=== PATIENT | male | born 1940 | race Two or more races ===

== ENCOUNTER 2020-09-23 17:25 | Inpatient (IN) | payer BC, OTHER ==
[~2020-09-23] VITALS: Ht 175.3 cm; Wt 79.2 kg
[~2020-09-23 17:25] MED LIST: ACE650RS
[2020-09-23] MEDS ORDERED: hydrALAZINE HCL 20 MG/ML VL IV ONE (17:45)
[2020-09-23] MEDS: DOPamine 1600MCG/ML D5W 250 ML IV SCH (17:56)
[2020-09-23] MEDS ORDERED: CALCIUM GLUC 4.65meq/50ml D5AE 50 ML IV ONE (18:00)
[2020-09-23 18:02] LABS: Urine WBC None Seen /hpf (0 - 3)
[2020-09-23 18:18] LABS: Basophils # (auto) 0 10 ^3/uL (0-0.2); Basophils % (auto) 0.3 % (0.0-2.0); Eosinophils # (auto) 0 10 ^3/uL (0-0.8); Eosinophils % (auto) 0.4 % (0.0-7.0); Hematocrit 36.8 % (41.0-53.0); Hemoglobin 12.5 g/dL (13.5-17.5); Lymphocytes # (auto) 1.2 10 ^3/uL (0.4-5.4); Lymphocytes % (auto) 16.3 % (10.0-50.0); Mean Corpuscular Hemoglobin 30.4 pg (28.0-32.0); Mean Corpuscular Hgb Conc. 33.9 g/dL (32.0-36.0); Mean Corpuscular Volume 89.9 fL (80.0-100.0); Monocytes # (auto) 0.5 10 ^3/uL (0-1.3); Monocytes % (auto) 7.4 % (0.0-12.0); Neutrophils # (auto) 5.5 10 ^3/uL (1.6-8.6); Neutrophils % (auto) 75.6 % (37.0-80.0); Platelet Count (auto) 205 10^3/uL (140-450); White Blood Cell 7.3 10^3/uL (4.4-10.8)
[2020-09-23 18:19] LABS: Urine Bacteria NONE SEEN /hpf (None Seen); Urine Blood Negative /uL (Negative); Urine Specific Gravity 1.005 (1.001-1.035)
[2020-09-23 18:36] LABS: Albumin 3.7 g/dL (3.4-5.0); Calcium 8.4 mg/dL (8.5-10.1); Magnesium 2.2 mg/dL (1.6-2.6); Potassium 3.7 mmol/L (3.5-5.1)
[2020-09-23 18:42] LABS: BUN/Creatinine Ratio 17.6; Bilirubin, Total 0.6 mg/dL (0.2-1.0); Total Protein 7.2 g/dL (6.4-8.2)
[2020-09-23] MEDS ORDERED: NITROGLYCERIN 0.4 MG SL TAB SL PRN (22:45)
[2020-09-23] MEDS ORDERED: ACETAMINOPHEN 325 MG TAB PO PRN (22:45)
[2020-09-23] MEDS ORDERED: DOCUSATE SOD 100 MG CAP PO PRN (22:45)
[2020-09-23] MEDS ORDERED: hydrALAZINE HCL 20 MG/ML VL IV PRN (22:45)
[2020-09-23] MEDS ORDERED: MORPHINE SULF INJ 2 MG/ML SYRINGE 1ML IV PRN (22:45)
[2020-09-23] MEDS ORDERED: HYDROcodone-ACET 5/325MG TAB PO PRN (22:45)
[2020-09-24] VITALS (54 sets, daily range): BP systolic 98–172; BP diastolic 48–120
[2020-09-24] MEDS: ONDANSETRON HCL 4 MG/2 ML VIAL IV PRN ×2 (01:45→06:43)
[2020-09-24 05:00] LABS: Basophils # (auto) 0 10 ^3/uL (0-0.2); Basophils % (auto) 0.2 % (0.0-2.0); Eosinophils # (auto) 0 10 ^3/uL (0-0.8); Eosinophils % (auto) 0.1 % (0.0-7.0); Hematocrit 41.4 % (41.0-53.0); Lymphocytes # (auto) 0.8 10 ^3/uL (0.4-5.4); Lymphocytes % (auto) 5.1 % (10.0-50.0); Mean Corpuscular Hemoglobin 30.3 pg (28.0-32.0); Mean Corpuscular Hgb Conc. 33.8 g/dL (32.0-36.0); Mean Corpuscular Volume 89.7 fL (80.0-100.0); Monocytes # (auto) 1.4 10 ^3/uL (0-1.3); Monocytes % (auto) 8.1 % (0.0-12.0); Neutrophils # (auto) 14.4 10 ^3/uL (1.6-8.6); Neutrophils % (auto) 86.5 % (37.0-80.0); Nucleated Red Blood Cells % 0.5 %; Platelet Count (auto) 227 10^3/uL (140-450); Red Blood Cells 4.62 10^6/uL (4.5-5.90); Red Cell Distribution Width 15.1 % (11.8-14.3); White Blood Cell 16.6 10^3/uL (4.4-10.8)
[2020-09-24 05:15] LABS: Albumin 3.9 g/dL (3.4-5.0); Potassium 3.8 mmol/L (3.5-5.1)
[2020-09-24 05:20] LABS: BUN/Creatinine Ratio 19.7; Total Protein 7.9 g/dL (6.4-8.2)
[2020-09-24] MEDS: ZINC SULFATE 220mg CAP or TAB PO SCH (10:00)
[2020-09-24] MEDS: MULTIPLE VITAMIN TAB PO SCH (10:00)
[2020-09-24] MEDS: ASCORBIC ACID 500 MG TAB PO SCH ×2 (10:00→22:00)
[2020-09-24] MEDS: ENOXAPARIN SOD 40 MG/0.4 ML SYRINGE SC SCH (10:00)
[2020-09-24] MEDS: DOPamine 1600MCG/ML D5W 250 ML IV SCH ×2 (10:39→22:00)
[2020-09-24] MEDS: FAMOTIDINE (10MG/ML) 2ML VL IV SCH (10:40)
[2020-09-24] MEDS ORDERED: cefTRIAXone 1GM/50ML D5W 50 ML IV ONE (10:45)
[2020-09-24] MEDS ORDERED: PROCHLORPERAZINE EDISYLATE 5 MG/ML 2ML VIAL IV PRN (11:30)
[2020-09-24] MEDS ORDERED: VANCOMYCIN 1GM/250ML 250 ML IV ONE (15:08)
[2020-09-24] MEDS ORDERED: fentaNYL CITRATE 100 MCG/2 ML VL ONE (15:09)
[2020-09-24] MEDS ORDERED: VANCOMYCIN HCL 1000 MG VL ONE (15:09)
[2020-09-24] MEDS ORDERED: MIDAZOLAM HCL 1MG/1ML-2 ML VIAL ONE (15:09)
[2020-09-24] MEDS ORDERED: LIDOCAINE 2%HCL (LOCAL ANESTH.) INJ 20ML MDV ONE ×2 (15:11)
[2020-09-24] MEDS ORDERED: IODIXANOL 320MG/ML 100ML BTL IV ONE (15:21)
[2020-09-24] MEDS ORDERED: FUROSEMIDE 20 MG/2 ML VIAL ONE (15:45)
[2020-09-25] VITALS (47 sets, daily range): BP systolic 81–136; BP diastolic 49–79
[2020-09-25 04:19] LABS: Basophils # (auto) 0 10 ^3/uL (0-0.2); Basophils % (auto) 0.2 % (0.0-2.0); Eosinophils # (auto) 0 10 ^3/uL (0-0.8); Eosinophils % (auto) 0.3 % (0.0-7.0); Hematocrit 36.3 % (41.0-53.0); Hemoglobin 12.7 g/dL (13.5-17.5); Lymphocytes # (auto) 0.8 10 ^3/uL (0.4-5.4); Lymphocytes % (auto) 7.6 % (10.0-50.0); Mean Corpuscular Hemoglobin 31.1 pg (28.0-32.0); Mean Corpuscular Volume 88.6 fL (80.0-100.0); Monocytes # (auto) 0.8 10 ^3/uL (0-1.3); Monocytes % (auto) 7.7 % (0.0-12.0); Neutrophils # (auto) 8.4 10 ^3/uL (1.6-8.6); Neutrophils % (auto) 84.2 % (37.0-80.0); Platelet Count (auto) 173 10^3/uL (140-450); Red Cell Distribution Width 15.2 % (11.8-14.3)
[2020-09-25 04:32] LABS: Albumin 3.4 g/dL (3.4-5.0); Calcium 7.9 mg/dL (8.5-10.1); Potassium 3.6 mmol/L (3.5-5.1)
[2020-09-25 04:35] LABS: BUN/Creatinine Ratio 20.8; Bilirubin, Total 1.1 mg/dL (0.2-1.0); Total Protein 6.9 g/dL (6.4-8.2)
[2020-09-25] MEDS: cefTRIAXone 1GM/50ML D5W 50 ML IV SCH (08:58)
[2020-09-25] MEDS: ASCORBIC ACID 500 MG TAB PO SCH ×2 (10:00→23:16)
[2020-09-25] MEDS: ZINC SULFATE 220mg CAP or TAB PO SCH (10:00)
[2020-09-25] MEDS: MULTIPLE VITAMIN TAB PO SCH (10:00)
[2020-09-25] MEDS ORDERED: SODIUM CHLORIDE 0.9% 1,000 ML IV ONE (10:30)
[2020-09-25] MEDS: ENOXAPARIN SOD 40 MG/0.4 ML SYRINGE SC SCH (10:46)
[2020-09-25] MEDS: FAMOTIDINE (10MG/ML) 2ML VL IV SCH (10:46)
[2020-09-26 05:04] VITALS: BP 108/70
[2020-09-26 09:00] VITALS: BP 148/81
[2020-09-26] MEDS: cefTRIAXone 1GM/50ML D5W 50 ML IV SCH (10:02)
[2020-09-26] MEDS: FAMOTIDINE (10MG/ML) 2ML VL IV SCH (10:03)
[2020-09-26] MEDS: ASCORBIC ACID 500 MG TAB PO SCH (10:03)
[2020-09-26] MEDS: ZINC SULFATE 220mg CAP or TAB PO SCH (10:03)
[2020-09-26] MEDS: ENOXAPARIN SOD 40 MG/0.4 ML SYRINGE SC SCH (10:03)
[2020-09-26] MEDS: MULTIPLE VITAMIN TAB PO SCH (10:03)
[2020-09-26 10:41] LABS: Basophils # (auto) 0 10 ^3/uL (0-0.2); Basophils % (auto) 0.3 % (0.0-2.0); Eosinophils # (auto) 0.1 10 ^3/uL (0-0.8); Eosinophils % (auto) 1.1 % (0.0-7.0); Hematocrit 36.1 % (41.0-53.0); Hemoglobin 12.1 g/dL (13.5-17.5); Lymphocytes # (auto) 0.9 10 ^3/uL (0.4-5.4); Mean Corpuscular Hemoglobin 30.4 pg (28.0-32.0); Mean Corpuscular Hgb Conc. 33.6 g/dL (32.0-36.0); Mean Corpuscular Volume 90.4 fL (80.0-100.0); Monocytes # (auto) 0.7 10 ^3/uL (0-1.3); Monocytes % (auto) 8.6 % (0.0-12.0); Neutrophils # (auto) 6.1 10 ^3/uL (1.6-8.6); Nucleated Red Blood Cells % 0.1 %; Platelet Count (auto) 167 10^3/uL (140-450); Red Blood Cells 3.99 10^6/uL (4.5-5.90); Red Cell Distribution Width 14.8 % (11.8-14.3); White Blood Cell 7.8 10^3/uL (4.4-10.8)
[2020-09-26 10:52] LABS: Potassium 3.4 mmol/L (3.5-5.1)
[2020-09-26 11:00] LABS: Albumin 3.1 g/dL (3.4-5.0); BUN/Creatinine Ratio 20.9; Bilirubin, Total 0.7 mg/dL (0.2-1.0); Total Protein 6.4 g/dL (6.4-8.2)
[2020-09-26 13:00] VITALS: BP 149/87
[2020-09-26] MEDS ORDERED: cloNIDine HCL 0.1 MG TAB PO PRN (15:15)
[2020-09-26] MEDS ORDERED: POTASSIUM EFFERVESENT TAB 25 MEQ PO ONE (15:15)
[2020-09-26 16:54] VITALS: BP 155/91
== END 2020-09-26 17:30 | disposition home or self-care (01) | DRG 244 ==
LOC: ER 17:25 → TELE 22:39 → ICU WEST 23:29 → TELE-CENTR 09-25 20:50
PROVIDERS: ADMIT Nurse Practitioner Family; ATTEND Internal Medicine
PROC: 0JH606Z Insertion of Pacemaker, Dual Chamber into Chest Subcutaneous Tissue and Fascia, Open Approach (ICD-10-PCS; principal; 2020-09-24)
PROC: 02H63JZ Insertion of Pacemaker Lead into Right Atrium, Percutaneous Approach (ICD-10-PCS; 2020-09-24)
PROC: 02HK3JZ Insertion of Pacemaker Lead into Right Ventricle, Percutaneous Approach (ICD-10-PCS; 2020-09-24)
PROC: B5171ZZ Fluoroscopy of Left Subclavian Vein using Low Osmolar Contrast (ICD-10-PCS; 2020-09-24)
DX: I44.1 Atrioventricular block, second degree (principal); I10 Essential (primary) hypertension; Z20.822 Contact with and (suspected) exposure to COVID-19; C61 Malignant neoplasm of prostate; E87.6 Hypokalemia; Z95.0 Presence of cardiac pacemaker; D63.8 Anemia in other chronic diseases classified elsewhere; E83.51 Hypocalcemia; Z91.19 Patient's noncompliance with other medical treatment and regimen; D72.829 Elevated white blood cell count, unspecified; I95.9 Hypotension, unspecified
CPT/HCPCS: 33208; 36415; 70450; 71045; 75860; 80053; 81001; 83036; 83735; 84154; 84443; 84484; 85025; 85610; 87040; 87081; 87426; 93005; 93306; 96365; 96375; 99152; 99153; 99291; C1785; G0378; J0610; J0696; J2250; J2405; J3490; Q9967

== ENCOUNTER → 2020-10-19 | Outpatient (CLI) | payer OTHER ==
[~2020-10-19] VITALS: Ht 175.3 cm; Wt 82.6 kg
[~2020-10-19] MED LIST changes: +ADENOSINE 69 MG in GIVE UN-DILUTED 0 ML IV ONE; +ADENOSINE 90 MG/30 ML INJ IV ONE
== END | disposition home or self-care (01) ==
LOC: Rad HDHVI 13:09
PROVIDERS: ATTEND Internal Medicine Cardiovascular Disease
DX: I10 Essential (primary) hypertension (principal); E11.9 Type 2 diabetes mellitus without complications; R55 Syncope and collapse; R44.1 Visual hallucinations; R00.1 Bradycardia, unspecified; Z82.49 Family history of ischemic heart disease and other diseases of the circulatory system; Z95.0 Presence of cardiac pacemaker
CPT/HCPCS: 78452; 93005; 96374; 96375; A9500; J0153

== ENCOUNTER 2022-07-15 00:19 | Inpatient (IN) | payer OTHER ==
[~2022-07-15] VITALS: Ht 175.3 cm; Wt 61.7 kg
[2022-07-15] VITALS (9 sets, daily range): BP systolic 110–150; BP diastolic 51–68
[~2022-07-15 00:19] MED LIST changes: -ADENOSINE 69 MG in GIVE UN-DILUTED 0 ML IV ONE; -ADENOSINE 90 MG/30 ML INJ IV ONE
[2022-07-15 01:12] LABS: White Blood Cell 7.3 10^3/uL (4.4-10.8)
[2022-07-15 01:14] LABS: Hematocrit 19.5 % (41.0-53.0); Mean Corpuscular Hemoglobin 25.5 pg (28.0-32.0); Mean Corpuscular Hgb Conc. 29.6 g/dL (32.0-36.0); Mean Corpuscular Volume 86.3 fL (80.0-100.0); Red Blood Cells 2.26 10^6/uL (4.5-5.90)
[2022-07-15 01:23] LABS: Red Cell Distribution Width 24.5 % (11.8-14.3)
[2022-07-15 01:30] LABS: Albumin 2.7 g/dL (3.4-5.0); BUN/Creatinine Ratio 35.4; Calcium 8.2 mg/dL (8.5-10.1); Magnesium 2.6 mg/dL (1.6-2.6); Potassium 3.9 mmol/L (3.5-5.1)
[2022-07-15 01:33] LABS: Bilirubin, Total 0.5 mg/dL (0.2-1.0); Total Protein 6.2 g/dL (6.4-8.2)
[2022-07-15 01:39] LABS: Hemoglobin 5.8 g/dL (13.5-17.5)
[2022-07-15 01:40] LABS: INR 1.18 (0.9-1.15); Partial Thromboplastin Time 27.1 sec (24.6-33.4)
[2022-07-15 01:41] LABS: Basophils % (manual) 0 (0.0-2.0); Blast Cells 0; Eosinophils % (manual) 0 (0-7); Metamyelocytes % 0; Promyelocytes % 0; Reactive Lymphocytes 0
[2022-07-15 02:12] LABS: Band Neutrophils % (manual) 2; Lymphocytes % (manual) 14 (10.0-50.0); Monocytes % (manual) 9 (0-12); Myelocytes % 1
[2022-07-15] MEDS ORDERED: DEXTROSE (50%) 50ML SYRG IV PRN (05:45)
[2022-07-15] MEDS ORDERED: ACETAMINOPHEN 325 MG TAB PO PRN (05:45)
[2022-07-15] MEDS ORDERED: IPRATROPIUM BROM 0.5 MG/2.5ML INH SOL NEB PRN (05:45)
[2022-07-15] MEDS ORDERED: DOCUSATE SOD 100 MG CAP PO PRN (05:45)
[2022-07-15] MEDS ORDERED: MORPHINE SULFATE INJ 2 MG/ml SYRG IV PRN (05:45)
[2022-07-15] MEDS ORDERED: NITROGLYCERIN 0.4 MG SL TAB SL PRN (05:45)
[2022-07-15] MEDS ORDERED: ALBUTEROL SULF 2.5 MG/0.5ML(0.5%) NEB SOLN NEB PRN (05:45)
[2022-07-15] MEDS ORDERED: ALBUMIN 25% 100 ML IV ONE (05:45)
[2022-07-15] MEDS ORDERED: ONDANSETRON HCL 4 MG/2 ML VIAL IV PRN (05:45)
[2022-07-15] MEDS: SODIUM CHLOR 0.9% PF (SALINE LOCK) 10ML VIAL/SYR IV SCH ×3 (06:01→22:43)
[2022-07-15] MEDS: InsuLIN REG 1unit/0.01ml Soln (100units/ml) SC SCH ×4 (07:00→22:56)
[2022-07-15 07:01] LABS: Hematocrit 17.5 % (41.0-53.0); Mean Corpuscular Hemoglobin 25.9 pg (28.0-32.0); Mean Corpuscular Hgb Conc. 31.2 g/dL (32.0-36.0); Red Blood Cells 2.11 10^6/uL (4.5-5.90); White Blood Cell 6.6 10^3/uL (4.4-10.8)
[2022-07-15] MEDS: ACCU-CHEK COMFORT CURVE STRIP VI SCH ×4 (07:05→22:46)
[2022-07-15 07:13] LABS: Red Cell Distribution Width 24.5 % (11.8-14.3)
[2022-07-15 07:17] LABS: Hemoglobin 5.5 g/dL (13.5-17.5)
[2022-07-15 07:18] LABS: Basophils % (manual) 0 (0.0-2.0); Blast Cells 0; Eosinophils % (manual) 0 (0-7); Promyelocytes % 0; Reactive Lymphocytes 0
[2022-07-15 07:45] LABS: Albumin 2.9 g/dL (3.4-5.0); Calcium 8.1 mg/dL (8.5-10.1)
[2022-07-15 07:48] LABS: BUN/Creatinine Ratio 44.8; Bilirubin, Total 0.4 mg/dL (0.2-1.0); Total Protein 6.3 g/dL (6.4-8.2)
[2022-07-15 08:37] LABS: Band Neutrophils % (manual) 17; Lymphocytes % (manual) 13 (10.0-50.0); Metamyelocytes % 3; Monocytes % (manual) 8 (0-12); Myelocytes % 4
[2022-07-15] MEDS ORDERED: HEPARIN SODIUM (PORCINE) 5000 UNITS/ML 1ML VIAL SC SCH (10:00)
[2022-07-15] MEDS ORDERED: IOHEXOL 350 MG/ML 100ML IJ ONE ×2 (10:16→13:18)
[2022-07-15 16:50] LABS: Urine Bacteria FEW /hpf (None Seen); Urine Blood Negative /uL (Negative); Urine Specific Gravity 1.042 (1.001-1.035); Urine WBC 1 /hpf (0 - 3)
[2022-07-16] VITALS (11 sets, daily range): BP systolic 97–147; BP diastolic 49–67
[2022-07-16 05:20] LABS: Hematocrit 20.1 % (41.0-53.0); Mean Corpuscular Hemoglobin 26.5 pg (28.0-32.0); Mean Corpuscular Hgb Conc. 31.5 g/dL (32.0-36.0); Mean Corpuscular Volume 84.3 fL (80.0-100.0); Red Blood Cells 2.39 10^6/uL (4.5-5.90); White Blood Cell 7.6 10^3/uL (4.4-10.8)
[2022-07-16 05:21] LABS: Red Cell Distribution Width 23.9 % (11.8-14.3)
[2022-07-16 05:23] LABS: Hemoglobin 6.3 g/dL (13.5-17.5)
[2022-07-16 05:32] LABS: Band Neutrophils % (manual) 0; Basophils % (manual) 0 (0.0-2.0); Blast Cells 0; Eosinophils % (manual) 0 (0-7); Metamyelocytes % 0; Myelocytes % 0; Promyelocytes % 0; Reactive Lymphocytes 0
[2022-07-16 05:41] LABS: Potassium 3.9 mmol/L (3.5-5.1)
[2022-07-16 05:50] LABS: Albumin 2.6 g/dL (3.4-5.0); BUN/Creatinine Ratio 44.2; Bilirubin, Total 0.7 mg/dL (0.2-1.0); Calcium 8.5 mg/dL (8.5-10.1); Total Protein 5.8 g/dL (6.4-8.2)
[2022-07-16] MEDS: SODIUM CHLOR 0.9% PF (SALINE LOCK) 10ML VIAL/SYR IV SCH ×3 (06:07→22:21)
[2022-07-16] MEDS: ACCU-CHEK COMFORT CURVE STRIP VI SCH ×4 (06:38→22:21)
[2022-07-16] MEDS: InsuLIN REG 1unit/0.01ml Soln (100units/ml) SC SCH ×4 (06:42→22:41)
[2022-07-16 06:55] LABS: Lymphocytes % (manual) 15 (10.0-50.0); Monocytes % (manual) 8 (0-12)
[2022-07-16] MEDS ORDERED: MORPHINE SULFATE INJ 2 MG/ml SYRG IV PRN (10:45)
[2022-07-16] MEDS: HYDROcodone-ACET 5/325MG TAB PO PRN (18:37)
[2022-07-17 02:56] VITALS: BP 97/49
[2022-07-17] MEDS ORDERED: METF-370 PO (03:21)
[2022-07-17 04:48] VITALS: BP 120/56
[2022-07-17] MEDS: SODIUM CHLOR 0.9% PF (SALINE LOCK) 10ML VIAL/SYR IV SCH ×2 (06:37→13:42)
[2022-07-17] MEDS: InsuLIN REG 1unit/0.01ml Soln (100units/ml) SC SCH ×2 (06:38→11:48)
[2022-07-17] MEDS: ACCU-CHEK COMFORT CURVE STRIP VI SCH ×2 (06:38→11:48)
[2022-07-17 07:36] LABS: Hemoglobin 8.1 g/dL (13.5-17.5); White Blood Cell 7.6 10^3/uL (4.4-10.8)
[2022-07-17 07:40] LABS: Hematocrit 25.2 % (41.0-53.0); Mean Corpuscular Hemoglobin 27.4 pg (28.0-32.0); Mean Corpuscular Hgb Conc. 32.3 g/dL (32.0-36.0); Mean Corpuscular Volume 84.9 fL (80.0-100.0); Red Blood Cells 2.96 10^6/uL (4.5-5.90)
[2022-07-17 08:11] LABS: Red Cell Distribution Width 21.6 % (11.8-14.3)
[2022-07-17 08:12] LABS: Basophils % (manual) 0 (0.0-2.0); Blast Cells 0; Eosinophils % (manual) 0 (0-7); Myelocytes % 0; Promyelocytes % 0
[2022-07-17 08:26] VITALS: BP 109/54
[2022-07-17 08:42] LABS: Band Neutrophils % (manual) 15; Lymphocytes % (manual) 8 (10.0-50.0); Metamyelocytes % 2; Monocytes % (manual) 7 (0-12); Reactive Lymphocytes 2
[2022-07-17 10:59] VITALS: BP 109/54
[2022-07-17 12:24] VITALS: BP 103/55
[2022-07-17] MEDS: HYDROcodone-ACET 5/325MG TAB PO PRN (14:13)
== END 2022-07-17 14:20 | disposition home or self-care (01) | DRG 723 ==
LOC: ER 00:19 → TELE 05:41 → TELE-EAST 07-16 17:59
PROVIDERS: ADMIT Nurse Practitioner Family; ATTEND Nurse Practitioner Acute Care
PROC: 30233N1 Transfusion of Nonautologous Red Blood Cells into Peripheral Vein, Percutaneous Approach (ICD-10-PCS; principal; 2022-07-15)
PROC: 30233R1 Transfusion of Nonautologous Platelets into Peripheral Vein, Percutaneous Approach (ICD-10-PCS; 2022-07-15)
DX: C61 Malignant neoplasm of prostate (principal); C79.51 Secondary malignant neoplasm of bone; D63.0 Anemia in neoplastic disease; D69.6 Thrombocytopenia, unspecified; E88.09 Other disorders of plasma-protein metabolism, not elsewhere classified; I10 Essential (primary) hypertension; R09.02 Hypoxemia; Z20.822 Contact with and (suspected) exposure to COVID-19; E11.65 Type 2 diabetes mellitus with hyperglycemia; Z90.79 Acquired absence of other genital organ(s); Z95.0 Presence of cardiac pacemaker; Z83.3 Family history of diabetes mellitus; Z82.49 Family history of ischemic heart disease and other diseases of the circulatory system; Z80.42 Family history of malignant neoplasm of prostate; Z80.0 Family history of malignant neoplasm of digestive organs
CPT/HCPCS: 36415; 36430; 71045; 71260; 74177; 80053; 81001; 82962; 83036; 83735; 83880; 84484; 85007; 85025; 85027; 85379; 85610; 85730; 86850; 86900; 86901; 86920; 87426; 87804; 93005; 93970; 96365; G0378; J1815; P9047